=== PATIENT | male | born 1995 | race Caucasian/White ===

== ENCOUNTER 2023-12-12 15:05 | Emergency (ER) | payer OTHER, SELFPAY ==
[2023-12-12 15:15] VITALS: BP 127/94
[2023-12-12 16:58] LABS: Urine Albumin Negative (Neg - Trace); Urine Bilirubin Negative (Negative); Urine Character Clear (Clear); Urine Color Straw; Urine Glucose Negative (Negative); Urine Ketone Negative (Negative); Urine Leukocyte Negative (Negative); Urine Nitrite Negative (Negative); Urine Occult Blood Negative (Negative); Urine Specific Gravity 1.005 (<1.030); Urine Urobilinogen Negative (Neg - 1+); Urine pH 6.5 (5.0-9.0)
[2023-12-12 20:30] VITALS: BP 120/80
--- NOTE | 2023-12-12 22:45 | ED.GENMED ---
History of Present Illness
General
Chief Complaint: Male Genito-Urinary Symptoms
Source: patient
Exam Limitations: none
Time Seen by Provider: 12/12/23 16:58
Nursing documentation reviewed up to this point in time: agreed with
Travel History
Have you had any contact with someone who has COVID-19?: No
Do you have any symptoms of coronavirus? Fever > 100 degrees, chills, cough, shortness of breath, sore throat, loss of taste or smell, muscle aches, or headache?: No
History of Present Illness
History of Present Illness:
Patient to ED wt complaint of scrotal pain. Symptoms started yesterday. Denies fever/chills, n/v. No pain with urination. No history of trauma. Brought self to ED for eval.
Past History
Past History
ED Past Medical History: Hypercholesterolemia, Psychiatric and Other (HIV)
ED Past Surgical History: Tonsilectomy
Social History
Tobacco: Non-smoker
Alcohol: Occasional
Drug: None
Review of Systems
Review of Systems
Allergies reviewed?: Yes
All Other Systems: ROS reviewed and negative except as documented in HPI and ROS
Constitutional: Reports no symptoms
EENT: Reports no symptoms
Respiratory: Reports no symptoms
Cardiac: Reports no symptoms
ABD/GI: Reports no symptoms
: Reports other (bilateral scrotal pain)
Musculoskeletal: Reports no symptoms
Skin: Reports no symptoms
Neurological: Reports no symptoms
Psychiatric: Reports no symptoms
Phy Exam
General Physical Exam
General Presentation: well appearing and no apparent distress
General age: appears stated age
General Skin: warm and dry
General Habitus: normal
General Mental: alert
Gastrointestinal Exam
Gastrointestinal Exam: non tender, soft, no organomegaly, no pulsatile mass, non distended and no cva tenderness
Genitourinary Exam Male
Exam Male: circumcised, no discharge, normal external genitalia, normal testicular exam, no evidence of trauma, no lesions and no testicular swelling
Epididymis Exam: normal
Musculoskeletal Exam
Musculoskeletal Exam: full ROM and neuro vasc intact
Skin Exam
Skin Exam: normal color, warm/dry and no rash
Psychiatric Exam
Psychiatric Exam: normal mood/affect
Course
Orders/Labs/Results
Orders:
Orders
12/12/23 16:30
Urinalysis Reflex To Culture Urgent
Date Specimen was Collected: 12/12/23
Time Specimen was Collected: 16:27
Chlamydia/GC by PCR Urgent
[place] Source: U
Specimen Description:
Source:: URINE
Date Specimen was Collected: 12/12/23
Time Specimen was Collected: 16:27
12/12/23 17:31
Scrotum US [US Scrotum] Urgent
Comment:
Reason For Exam: bilateral pain
12/12/23 17:35
Add On- LAB Urgent
Comments:: urine
Tests Added?: Claymydia/GC by PCR
Vital Signs
Initial and Last Documented VS:
Initial Vital Signs
Temp Pulse Resp BP Pulse Ox
99.6 F 100 16 127/94 96
12/12/23 15:15 12/12/23 15:15 12/12/23 15:15 12/12/23 15:15 12/12/23 15:15
Last Documented Vital Signs
Temp Pulse Resp BP Pulse Ox
99.6 F 70 16 120/80 96
12/12/23 15:15 12/12/23 20:30 12/12/23 20:30 12/12/23 20:30 12/12/23 20:30
*Radiology
Radiology exam reviewed: radiology read reviewed
*Pulse Oximetry
Patient hypoxic: no
*Critical Care Note
Total Time (30-74mins, 75-104mins- exclusive of procedures): Not Applicable
ED Attending Note
-
Portions of this chart may have been created with voice recognition software.� Occasional wrong word or��sound alike� substitutions may have occurred due to the inherent limitations of voice recognition software.
Discharge Plan
Departure
Patient Disposition: Home (Routine Discharge)
Date of Disposition: 12/12/23
Time of Disposition: 20:10
Patient with high blood pressure during this ER visit?: No
Condition: Good
Covid-19: Not Applicable
Discharge Problem:
Pain in scrotum
Instructions: Ibuprofen, Using Cold for Pain
Referrals:
Ludwin Rojas MD [Active] - (Follow up if your symptoms do not improve over the next week.)
Reza Monroy III, CRNP [Family Provider] -
Interventions
Interventions:
*ED COVID-19 Vaccine History Last Done: 12/12/23 15:15
*Nursing Disposition Last Done: 12/12/23 20:31
ED-Male Genitourinary Assessment Last Done: 12/12/23 17:36
Discharge Date and Time
Discharge Date/Time: 12/12/23 20:32
Print Language: URDU
== END 2023-12-12 20:32 | disposition home or self-care (01) ==
LOC: EMR 15:05
PROVIDERS: EMERGENCY PHYSICIAN Emergency Medicine; FAMILY PHYSICIAN Nurse Practitioner Acute Care
DX: N50.82 Scrotal pain (principal); E78.00 Pure hypercholesterolemia, unspecified; Z21 Asymptomatic human immunodeficiency virus [HIV] infection status
CPT/HCPCS: 99284; 76870; 81003; 87491; 87591; 93976

== ENCOUNTER → 2024-04-14 13:05 | Outpatient (REF) | payer OTHER, SELFPAY | LOC: RAD 13:05 | PROVIDERS: ATTENDING PHYSICIAN Internal Medicine | DX: M25.552 Pain in left hip (principal) | CPT/HCPCS: 73502 ==

== ENCOUNTER 2024-12-23 17:19 | Emergency (ER) | payer OTHER, SELFPAY ==
[2024-12-23 17:28] VITALS: BP 135/80
--- NOTE | 2024-12-23 18:46 | ED.SKININJ ---
HPI-Injury
General
Chief Complaint: Skin Surface Trauma
Source: patient
Exam Limitations: none
Time Seen by Provider: 12/23/24 18:32
Nursing documentation reviewed up to this point in time: agreed with
History of Present Illness-Injury
Initial Injury comments:
29-year-old male , while peeling a lemon at work about 2 hours ago, he avulsed the skin of the distal left ring finger within the past 2 hours. Unsure of last tetanus immunization
Past History
Past History
ED Past Medical History: Hypercholesterolemia, Psychiatric and Other (HIV)
ED Past Surgical History: Tonsilectomy
Social History
Tobacco: Non-smoker
Alcohol: Occasional
Drug: None
Review of Systems
Review of Systems
Allergies reviewed?: Yes
All Other Systems: ROS reviewed and negative except as documented in HPI and ROS
Skin: Reports other (Cut tip of left ring finger)
Skin Exam
Avulsion
Tip of left ring finger:
Type of avulsion injury: avulsion (5 mm round)
Any active bleeding?: low grade venous oozing
Phy Exam
Physical Exam
Physical Exam:
PHYSICAL EXAMINATION:
General: no apparent distress, not acutely ill
Neuro: alert and oriented.
Psychiatric: well kept. interactive and cooperative
Musculoskeletal: Moves with ease
Skin: Warm, pink.
Course
Orders/Labs/Results
Orders:
Orders
12/23/24 18:47
Tetanus/Diphth/Acelpertussis [Adacel] 0.5 ml IM .ONCE ONE
Vital Signs
Initial and Last Documented VS:
Initial Vital Signs
Temp Pulse Resp BP Pulse Ox
98.8 F 90 16 135/80 98
12/23/24 17:28 12/23/24 17:28 12/23/24 17:28 12/23/24 17:28 12/23/24 17:28
Last Documented Vital Signs
Temp Pulse Resp BP Pulse Ox
98.8 F 81 16 134/78 98
12/23/24 17:28 12/23/24 19:01 12/23/24 19:01 12/23/24 19:01 12/23/24 19:01
MDM/Problems Addressed
MDM/Problems Addressed:
29-year-old male , while peeling a lemon at work about 2 hours ago, he avulsed the skin of the distal left ring finger within the past 2 hours. Unsure of last tetanus immunization
Wound cleansed with NSS, Gelfoam, nonstick and tubegauze dressing applied with good hemostasis.
Tetanus immunization updated
*Pulse Oximetry
SaO2: 98
Patient hypoxic: not evaluated
*Critical Care Note
Total Time (30-74mins, 75-104mins- exclusive of procedures): Not Applicable
ED Attending Note
-
Portions of this chart may have been created with voice recognition software.� Occasional wrong word or��sound alike� substitutions may have occurred due to the inherent limitations of voice recognition software.
Discharge Plan
Departure
Patient Disposition: Home (Routine Discharge)
Date of Disposition: 12/23/24
Time of Disposition: 18:43
Patient with high blood pressure during this ER visit?: No
Condition: Good
Discharge Problem:
Avulsion of skin of finger
Instructions: Abrasions - ED discharge instructions
Referrals:
Your Worker's Comp. doctor [Other] - As needed
Stand Alone Forms: Return to Work
Activity Restrictions/Additional Instructions:
As we discussed, change the dressing on Thursday.
Then wash daily as usual with soap and water, apply antibiotic ointment, Band-Aids and use the aluminum fingertip splint for protection as needed.
It may take 2 to 3 weeks for this area to heal.
Interventions
Interventions:
*Risk Screen - Suicide Last Done: 12/23/24 19:01
*General Assessment Last Done: 12/23/24 19:01
*Neglect/Abuse Screening Last Done: 12/23/24 19:01
*ED- Fall Risk Assessment Last Done: 12/23/24 19:01
*ED COVID-19 Vaccine History Last Done: 12/23/24 19:01
*Nursing Disposition Last Done: 12/23/24 19:01
ED-Skin Assessment Last Done: 12/23/24 19:01
Discharge Date and Time
Discharge Date/Time: 12/23/24 19:08
Print Language: TELUGU
[2024-12-23] MEDS: ADACEL 0.5 ML IM (18:54)
[2024-12-23 19:01] VITALS: BP 134/78
== END 2024-12-23 19:08 | disposition home or self-care (01) ==
LOC: EMR 17:19
PROVIDERS: EMERGENCY PHYSICIAN Emergency Medicine; FAMILY PHYSICIAN Internal Medicine
DX: S61.215A Laceration without foreign body of left ring finger without damage to nail, initial encounter (principal); W27.8XXA Contact with other nonpowered hand tool, initial encounter; Z23 Encounter for immunization; E78.00 Pure hypercholesterolemia, unspecified; Y99.0 Civilian activity done for income or pay
CPT/HCPCS: 90471; 99282; 90715

== ENCOUNTER 2025-01-30 14:03 | Emergency (ER) | payer OTHER, SELFPAY ==
[2025-01-30 14:08] VITALS: BP 132/85
--- NOTE | 2025-01-30 15:40 | ED.SKININJ ---
HPI-Injury
General
Chief Complaint: Bite
Source: patient
Exam Limitations: none
Time Seen by Provider: 01/30/25 15:28
Nursing documentation reviewed up to this point in time: agreed with
History of Present Illness-Injury
Is this injury a work related problem?: No
Is pt an associate of [facility]?: No
Initial Injury comments:
Patient to ED with complaint of cat bite to right dosral 5th finger. States cat had become more aggressive over the past week. He had cat euthanized this AM. Vet is testing the cat for rabies. Cat last received full rabies vaccine 1 year ago.
Advised by vet to come to ED. Cat is an indoor cat.
Past History
Past History
ED Past Medical History: Hypercholesterolemia, Psychiatric and Other (HIV)
ED Past Surgical History: Tonsilectomy
Social History
Tobacco: Non-smoker
Alcohol: Occasional
Drug: None
Review of Systems
Review of Systems
Allergies reviewed?: Yes
All Other Systems: ROS reviewed and negative except as documented in HPI and ROS
Constitutional: Reports no symptoms
EENT: Reports no symptoms
Respiratory: Reports no symptoms
Cardiac: Reports no symptoms
ABD/GI: Reports no symptoms
: Reports no symptoms
Musculoskeletal: Reports no symptoms
Skin: Reports other (cat bite right dorsal 5th finger)
Neurological: Reports no symptoms
Psychiatric: Reports no symptoms
Skin Exam
Bite
Right Dorsal Fifth Finger:
Type: animal
Skin has: puncture wounds (1 puncture)
Surrounding area around bite has: no evidence of erythema
Distal skin color and temperature: normal-warm & good color
Normal distal neurovascular exam: Yes
Phy Exam
General Physical Exam
General Presentation: well appearing and no apparent distress
General age: appears stated age
General Skin: warm and dry
General Habitus: normal
General Mental: alert
Neurological Exam
Neurological Exam: alert, oriented x3, no motor deficits, no sensory deficits and speech normal
Musculoskeletal Exam
Musculoskeletal Exam: full ROM and neuro vasc intact
Skin Exam
Skin Exam: normal color, warm/dry and no rash
Psychiatric Exam
Psychiatric Exam: normal mood/affect
Course
Vital Signs
Initial and Last Documented VS:
Initial Vital Signs
Temp Pulse Resp BP Pulse Ox
97.5 F 70 16 132/85 97
01/30/25 14:08 01/30/25 14:08 01/30/25 14:08 01/30/25 14:08 01/30/25 14:08
Last Documented Vital Signs
Temp Pulse Resp BP Pulse Ox
97.5 F 70 16 132/85 97
01/30/25 14:08 01/30/25 14:08 01/30/25 14:08 01/30/25 14:08 01/30/25 14:08
*Pulse Oximetry
SaO2: 97
Oxygen Mode of Delivery: Room air
Patient hypoxic: no
*Critical Care Note
Total Time (30-74mins, 75-104mins- exclusive of procedures): Not Applicable
Update Note
Update Note:
Patient to ED for eval of cat bite to right 5th finger. Cat became aggressive this week and bit him yesterday. Cat was euthanized this AM and is being tested for rabies. Received full rabies vaccination 1 year ago. Cat is an indoor cat.
Recommend waiting for rabies results before initiating rabies vaccine. Patient is agreeable to plan. Patient is asymptomatic. Given instructions on s/s to return to ED and he is agreeable to plan.
ED Attending Note
-
Portions of this chart may have been created with voice recognition software.� Occasional wrong word or��sound alike� substitutions may have occurred due to the inherent limitations of voice recognition software.
Discharge Plan
Departure
Patient Disposition: Home (Routine Discharge)
Date of Disposition: 01/30/25
Time of Disposition: 15:37
Patient with high blood pressure during this ER visit?: No
Condition: Good
Covid-19: Not Applicable
Discharge Problem:
Cat bite
Instructions: Animal Bites (DC)
Activity Restrictions/Additional Instructions:
Follow up with your vet regarding the rabies results on your cat. If your cat tested positive, return to the emergency department immediately to start the rabies series.
Interventions
Interventions:
*Risk Screen - Suicide Last Done: 01/30/25 14:10
*Neglect/Abuse Screening Last Done: 01/30/25 14:10
Discharge Date and Time
Print Language: YI
== END 2025-01-30 15:52 | disposition home or self-care (01) ==
LOC: EMR 14:03
PROVIDERS: EMERGENCY PHYSICIAN Student in an Organized Health Care Education/Training Program; FAMILY PHYSICIAN Internal Medicine
DX: S61.256A Open bite of right little finger without damage to nail, initial encounter (principal); W55.01XA Bitten by cat, initial encounter; E78.00 Pure hypercholesterolemia, unspecified; Z21 Asymptomatic human immunodeficiency virus [HIV] infection status
CPT/HCPCS: 99281